=== PATIENT | male | born 1980 | race Caucasian/White ===

== ENCOUNTER 2025-01-30 07:37 | Outpatient (CLI) | payer OTHER, SELFPAY ==
--- NOTE | ~2025-01-30 | US_ITS ---
US abdomen complete EXAMINATION: US Abdomen Complete INDICATION: Abdomen pain. PROCEDURE: Realtime High Resolution abdomen ultrasound. COMPARISON: No prior studies for comparison FINDINGS: Gallbladder within normal limits. No gallstones, pericholecystic fluid, gallbladder wall thickening or biliary dilatation. Common bile duct measures 3 mm. Liver echotexture within normal limits without focal mass. Pancreas within normal limits. Pancreatic tail is obscured by bowel gas. Spleen is unremarkeable. Renal echotexture is within normal limits bilaterally without hydronephrosis, contour deforming mass or renal stone. Right kidney measures 11.7 cm. Left kidney measures 12.8 cm. Visualized aspects of the aorta and IVC are within normal limits. Portal vein is patent. No sonographic Álvarez's sign indicated by the technologist. IMPRESSION: 1: Normal abdominal ultrasound. Reviewed, dictated and finalized at location O.
--- NOTE | ~2025-01-30 | CT_ITS ---
EXAMINATION: CT diagnostic chest w con DATE: 01/30/2025 08:31 INDICATION: Right axillary rib and chest wall pain TECHNIQUE: Computed tomography (CT) of the chest was performed with intravenous contrast. The dose-length product was 250.66 mGy-cm. COMPARISON: None FINDINGS: Heart size normal. No significant pleural or pericardial effusion. No thoracic lymphadenopathy. No significant vascular abnormality. No central pulmonary embolism. Fatty infiltration of the liver. The spleen, pancreas, adrenal glands and kidneys are unremarkable. Partially visualized appendix is unremarkable. Nonobstructive bowel gas pattern. No focal airspace consolidation. No endobronchial lesions. No pneumothorax. Mild emphysema. No acute osseous abnormality. IMPRESSION: 1. No acute abnormality of the chest. Reviewed, dictated and finalized at location O.
--- OUTSIDE RECORDS SUMMARY | 2025-01-30 07:57 | XMS_ITS | Clinical Summary ---
Author Organization [facility] Address [address] [place] [address] Care Team Providers Care Sampler Ovens Name Role Phone Unavailable Primary Care Provider Unavailabl e Source Comments [facility],non-owned Affiliates and Associated Physician Practices is amultiple site organization consisting of ambulatory clinics and hospital sitesin [place], [place], [place] and [place]. This disclosure is being madepursuant to the Care Everywhere program and may not contain all information available regarding this patient. Last updated 18.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 Gender Identity Not on file Sexual Orientation Not on file Last Filed Vital Signs Vital Sign Reading Time Taken Comments Blood Pressure 141/60 11/02/2013 3:07 PM CDT Pulse 80 11/02/2013 3:07 PM CDT Temperature 36.7 C (98.1 F) 11/02/2013 2:28 PM CDT Respiratory Rate 14 11/02/2013 3:07 PM CDT Oxygen Saturation 100% 11/02/2013 3:07 PM CDT Inhaled Oxygen Concentration - - Weight 86.2 kg (190 lb) 11/02/2013 2:28 PM CDT Height 180.3 cm (5' 11) 11/02/2013 2:28 PM CDT Body Mass Index 26.5 11/02/2013 2:28 PM CDT Plan of Treatment Health Maintenance Due Date Last Done Comments COLOGUARD (AGES 45-75) - COL ON CA SCREENING 1978 COLON MONITORING 1978 COLONOSCOPY - COLON CA SCREENING 1978 CT COLONOGRAPHY - COLON CA SCREENING 1978 Colorectal Cancer Screening 1978 FIT - COLON CA SCREENING 1978 FLEX SIG - COLON CA SCREENING 1978 LIPID TESTING 1978 HIV SCREENING 1993 HEPATITIS C SCREENING 07/19/1996 DTAP/TDAP/TD VACCINES (1 - Tdap) 1997 HEPATITIS B VACCINE (1 of 3 - 19+ 3-dose series) 1997 DEPRESSION SCREENING 05/11/2024 COVID-19 VACCINE (1 - 2023-2 5 season) 2025 INFLUENZA VACCINE (#1) 2025 ZOSTER VACCINE (1 of 2) 2028 HIB VACCINE Aged Out No longer eligi ble based on patient's age to complete this topic HPV VACCINE Aged Out No longer eligi ble based on patient's age to complete this topic MENINGOCOCCAL (Group B) VACC INE SHARED DECISION-MAKING Aged Out No longer eligibl e based on patient's age to complete this topic MENINGOCOCCAL GROUPS A/C/Y/W VACCINE Aged Out No longer eligible b ased on patient's age to complete this topic PNEUMOCOCCAL VACCINE Aged Out No long er eligible based on patient's age to complete this topic
== END 2025-01-30 07:38 | disposition home or self-care (01) ==
PROVIDERS: PCP Emergency Medicine; Visit Provider Emergency Medicine
DX: R07.89 Other chest pain (principal); R10.10 Upper abdominal pain, unspecified
CPT/HCPCS: 71260; 76700; Q9967

== ENCOUNTER 2025-05-02 07:11 | Emergency (ER) | payer OTHER, SELFPAY ==
--- NOTE | ~2025-05-02 | US_ITS ---
EXAMINATION: US scrotum doppler DATE: 05/02/2025 09:37 INDICATION: Testicular pain TECHNIQUE: Testicular sonogram utilizing grayscale and Doppler COMPARISON: None. FINDINGS: The right testis measures 5.0 x 3.5 x 2.5 cm. The left testis measures 4.8 x 3.0 x 2.8 cm. Symmetric normal grayscale appearance to both testes. There is normal vascular flow to both testes. 7 mm anechoic right epididymal head cyst. The right epididymis is otherwise normal with normal vascular flow. The left epididymis is normal with normal vascular flow. There is no varicocele. Minimal bilateral hydroceles. IMPRESSION: 1. 7 mm right epididymal cyst and minimal bilateral hydroceles. Otherwise normal scrotal ultrasound. Reviewed, dictated and finalized at location A. LOGIST IMPRESSION: 1. 7 mm right epididymal cyst and minimal bilateral hydroceles. Otherwise norm al scrotal ultrasound.
--- NOTE | ~2025-05-02 | CT_ITS ---
CT abdomen pelvis w con Clinical History: LT flank pain, urinary frequency/urgency . Comparison: None Technique: Axial images lung bases to symphysis pubis IV contrast information not listed in PACS Coronal, sagittal reformats CT images acquired with automatic exposure control for dose reduction DLP: 358 mGy-cm Findings: Lung bases: Clear. Visualized heart and pericardium: Unremarkable. Liver: Enlarged. Steatosis. Gallbladder: Unremarkable. Spleen: Unremarkable. Pancreas: Unremarkable. Adrenal glands: Unremarkable. Kidneys: Right kidney- No hydronephrosis. Tiny stone. Left kidney- hydronephrosis. 2 mm stone. 3 mm stone distal ureter. Distal esophagus/stomach: Mild distal esophageal wall thickening/esophagitis. Small bowel loops: Normal caliber and wall thickness. Colon: Mild apparent wall thickening but under distended. Normal RLQ appendix. Nodes: No enlarged nodes. Peritoneum: No ascites. No free air. Urinary bladder: Unremarkable. Prostate: Unremarkable. Bones: No acute bony abnormality. Soft tissues: Small umbilical hernia with fat. Aorta: No aneurysm or dissection. IVC: Unremarkable. Main portal vein/SMV/splenic vein: Patent. IMPRESSION: 1. Left kidney hydronephrosis from 3 mm stone distal ureter. Tiny bilateral nephrolithiasis. 2. Additional findings as above. Reviewed, dictated and finalized at location R. ER MACHINE OPERATOR IMPRESSION: 1. Left kidney hydronephrosis from 3 mm stone distal ureter. Tiny bilateral ne phrolithiasis. 2. Additional findings as above.
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
--- OUTSIDE RECORDS SUMMARY | 2025-05-02 07:13 | XMS_ITS | Clinical Summary ---
Author Organization [facility] Address [address] [place] [address] Care Team Providers Care Director Of Hotel Operations Name Role Phone Unavailable Primary Care Provider Unavailabl e Source Comments [facility],non-owned Affiliates and Associated Physician Practices is amultiple site organization consisting of ambulatory clinics and hospital sitesin [place], [place], [place] and [place]. This disclosure is being madepursuant to the Care Everywhere program and may not contain all information available regarding this patient. 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
[2025-05-02 07:56] VITALS: BP 152/103; PULSE 62; RESP 22; TEMP 36.7; O2SAT 100
[2025-05-02 08:14] LABS: Hematocrit 48.6 % (42.0-52.0); Hemoglobin 16.7 g/dL (14.0-18.0); Immature Granulocyte Percent A 0.3 % (0-0.5); Lymphocytes Absolute Auto 1.74 K/mm3 (0.9-3.2); Mean Corpuscular HGB Conc 34.4 g/dl (32-36); Mean Corpuscular Hemoglobin 29.8 pg (26-34); Mean Corpuscular Volume 86.8 fl (80-100); Nucleated Red Blood Cells Absolute Auto 0.000 K/mm3 (0.0-0.012); Nucleated Red Blood Cells Perc 0.0 % (0.0-0.2); Platelet Count Result 291 k/mm3 (150-375); Red Blood Count 5.60 M/mm3 (4.6-6.20); White Blood Count 9.6 K/mm3 (4.5-10.0)
[2025-05-02 08:33] LABS: Alanine Aminotransferase 31 U/L (6-50); Albumin Level 4.4 g/dL (3.5-5.1); Alkaline Phosphatase 94 U/L (38-126); Anion Gap 7 mmol/L (4-12); Aspartate Amino Transferase 32 U/L (17-59); Bilirubin,Total 0.8 mg/dL (0.2-1.3); Blood Urea Nitrogen 15 mg/dL (9-20); Calcium 9.3 mg/dL (8.4-10.2); Carbon Dioxide 26 mmol/L (22-30); Chloride 107 mmol/L (98-107); Estimated CRCL calculation 90 ml/min; Estimated Glomerular Filt Rate > 60; Glucose 105 mg/dL (65-110); Potassium 4.1 mmol/L (3.4-5.0); Sodium 140 mmol/L (137-145); Total Protein 7.6 g/dL (6.3-8.2)
[2025-05-02 08:45] VITALS: BP 148/93; PULSE 62; RESP 18; O2SAT 98
[2025-05-02] MEDS: ONDANSETRON INJ 4 MG/2 ML VIAL IV PUSH (08:45)
[2025-05-02] MEDS: HYDROmorphone HCL INJ (*CRX) 1 MG/ML SYR IV PUSH (08:45)
[2025-05-02 08:52] LABS: Add Urine Microscopic? YES; Appearance Urine Clear (Clear); Glucose Urine UA Negative (Negative); Leukocyte Esterase Ur 1+ LEU/UL (Negative); Nitrate Urine Negative (Negative); Non Pathogenic Casts 0-2; Specific Grav Ur 1.028 (1.001-1.035)
--- OUTSIDE RECORDS SUMMARY | 2025-05-02 08:58 | XMS_ITS | Clinical Summary ---
Author Organization [facility] [employer] Address [address] [place] [address] Care Team Providers Care Speech Language Pathologist Prn Name Role Phone No, Pcp LOOM FIXER SUPERVISOR Primary Care Provider Unavailabl e Medications No [...] Medical Devices Not on file Care Teams Speech Language Pathologist Prn Relationship Specialty Start Date End Date No, Pcp, LOOM FIXER SUPERVISOR N/A Do not use PCP - General Family Medicine 05/15/20
--- OUTSIDE RECORDS SUMMARY | 2025-05-02 08:58 | XMS_ITS | Clinical Summary ---
Author Organization [facility] Address [address] [place] [address] Care Team Providers Care Senior Trainer Name Role Phone Unavailable Primary Care Provider Unavailabl e Source Comments [facility],non-owned Affiliates and Associated Physician Practices is amultiple site organization consisting of ambulatory clinics and hospital sitesin [place], [place], [place] and [place]. This disclosure is being madepursuant to the Care Everywhere program and may not contain all information available regarding this patient. 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
--- NOTE | 2025-05-02 09:40 | ED.GENADULT ---
HPI - General Adult General Chief complaint: Urogenital-Male Stated complaint: urinary frequency, L side flank pain Time Seen by Provider: 05/02/25 08:36 History of Present Illness HPI narrative: 44-year-old male presents to the emergency department for evaluation for acute onset of left-sided flank pain that started this morning. Patient has no prior history of ureteral calculi. Patient does have a prior history of a vasectomy. Patient reports the left flank pain does radiate down to his left testicle. Patient denies any specific falls or injuries. Patient was unsure if he was having any hematuria. Patient does report associated nausea and vomiting. Patient denies any other significant past medical history. Time of evaluation patient is uncomfortable appearing. Related Data Allergies Allergy/AdvReac Type Severity Reaction Status Date / Time No Known Allergies Allergy Verified 05/02/25 07:58 Review of Systems Review of Systems: All systems reviewed & are unremarkable except as noted in HPI and below [facility] Social History Social History (Updated 05/20/19 @ 20:48 by Mary Ramos PA-C) Smoking status: Current every day smoker Alcohol intake: current Gender identity (if verbalized by the patient): Male Exam Narrative: APPEARANCE: Uncomfortable appearing HEAD: normocephalic, atraumatic. EYES: PERRLA/EOMI, conjunctivae clear. NOSE: Normal no drainage EARS:TMS clear with good light reflex. THROAT: Pharynx clear, no exudate. NECK: Supple. No adenopathy, no masses. RESPIRATORY: Airway patent, respirations nonlabored. Clear to auscultation bilaterally, no rales, rhonchi, wheezing. CARDIOVASCULAR: Regular rate and rhythm without murmurs rubs or gallops. ABDOMINAL: Soft, nontender, nondistended, normal bowel sounds MUSCULOSKELETAL: Moves all extremities. Strength/ROM intact, No edema, No calf tenderness. NEURO: Alert. Cranial nerves II through XII intact. Good gait. Good coordination SKIN: Warm, dry. Normal Color Course Vital Signs Vital signs: Vital Signs Temperature 98.1 F 05/02/25 07:56 Pulse Rate 62 05/02/25 07:56 Respiratory Rate 22 H 05/02/25 07:56 Blood Pressure 152/103 H 05/02/25 07:56 Pulse Oximetry 100 05/02/25 07:56 Oxygen Delivery Room Air 05/02/25 07:56 Temperature 98.1 F 05/02/25 07:56 Pulse Rate 65 05/02/25 11:00 Respiratory Rate 16 05/02/25 11:00 Blood Pressure 145/96 H 05/02/25 11:00 Pulse Oximetry 99 05/02/25 11:00 Oxygen Delivery Room Air 05/02/25 07:56 [facility] Narrative Medical decision making narrative: 44-year-old male presents emergency department for evaluation for left flank pain. Patient is currently afebrile with no leukocytosis and a stable hemoglobin. Patient has normal kidney function. UA was negative for an infection. He did have leukocyte esterase positive of some red blood cells some white blood cells but negative for urine. Patient was initially treated with 1 mg of Dilaudid medication for nausea control but patient states this did not help significantly. CT scan does show a 3 mm ureteral calculi in the distal left ureter. Patient was then treated with additional medication for nausea control along with IV Toradol. Patient was updated the results of the workup and plan for treatment. All questions concerns were addressed. On re-evaluation patient states he does feel significantly improved patient is resting comfortably. Patient denies any nausea vomiting. Patient states abdominal pain has resolved. Patient was provided a urinal, filter, sample cup. Patient will be started on Zofran, [place] and Flomax. Patient will be provided outpatient follow-up with Urology. Patient was updated on the treatment plan for the kidney stone and on reasons to return to the emergency department. Differential Diagnosis Differential Diagnosis: Kidney stone, kidney failure, dehydration, infected stone, colitis, diverticulitis Lab Data [facility] Lab Attestation statement: I personally reviewed the patient's lab results. 05/02/25 08:09 05/02/25 08:09 Labs: Lab Results 05/02/25 Range/Units 08:09 WBC 9.6 (4.5-10.0) K/mm3 RBC 5.60 (4.6-6.20) M/mm3 Hgb 16.7 (14.0-18.0) g/dL Hct 48.6 (42.0-52.0) % MCV 86.8 (80-100) fl MCH 29.8 (26-34) pg MCHC 34.4 (32-36) g/dl RDW 13.4 (11.5-14.5) % Plt Count 291 (150-375) k/mm3 MPV 8.3 (7.4-10.4) fl Immature Gran % (Auto) 0.3 (0-0.5) % Neut % (Auto) 71.8 (45.5-73.1) % Lymph % (Auto) 18.1 L (18.3-44.2) % Mckinley % (Auto) 8.3 (2.6-8.5) % Eos % (Auto) 0.9 (0-4.4) % Baso % (Auto) 0.6 (0.2-1.2) % Lymph # (Auto) 1.74 (0.9-3.2) K/mm3 Mckinley # (Auto) 0.8 H (0.1-0.6) K/mm3 Eos # (Auto) 0.1 (0-0.3) K/mm3 Baso # (Auto) 0.1 (0.0-0.1) K/mm3 Abs Immat Gran (auto) 0.03 (0.00-0.031) K/mm3 Absolute Neuts (auto) 6.9 H (1.3-6.7) K/mm3 Absolute Nucleated RBC 0.000 (0.0-0.012) K/mm3 Nucleated RBC % 0.0 (0.0-0.2) % Sodium 140 (137-145) mmol/L Potassium 4.1 (3.4-5.0) mmol/L Chloride 107 (98-107) mmol/L Carbon Dioxide 26 (22-30) mmol/L Anion Gap 7 (4-12) mmol/L BUN 15 (9-20) mg/dL Creatinine 0.96 (0.7-1.3) mg/dL Estim Creat Clear Calc 90 ml/min Estimated GFR > 60 (59 - ) Glucose 105 (65-110) mg/dL Calcium 9.3 (8.4-10.2) mg/dL Total Bilirubin 0.8 (0.2-1.3) mg/dL AST 32 (17-59) U/L ALT 31 (6-50) U/L Alkaline Phosphatase 94 (38-126) U/L Total Protein 7.6 (6.3-8.2) g/dL Albumin 4.4 (3.5-5.1) g/dL Urine Color Dark yellow (Yellow) Urine Appearance Clear (Clear) Urine pH 6.0 (5.0-9.0) Ur Specific [place] 1.028 (1.001-1.035) Urine Protein Trace (Negative) mg/dL Urine Glucose (UA) Negative (Negative) mg/dL Urine Ketones Trace H (Negative) mg/dL Ur Blood (Man) 2+ H (Negative) Urine Nitrate Negative (Negative) Urine Bilirubin Negative (Negative) Urine Urobilinogen 1.0 (<2.0) mg/dL Leukocyte Esterase Rfl 1+ H (Negative) RONY/UL Urine RBC 6-10 H (0-2) /hpf Urine WBC 11-20 H (0-3) /hpf Ur Squamous Epith Cells None seen (Few) /hpf Urine Bacteria None seen /hpf Urine Casts 0-2 Urine Mucus Present /lpf Imaging Data Radiologist's impression: ITS Impressions Abdomen/Pelvis CT 05/02/25 09:04 IMPRESSION: 1. Left kidney hydronephrosis from 3 mm stone distal ureter. Tiny bilateral nephrolithiasis. 2. Additional findings as above. Scrotum Ultrasound 05/02/25 09:50 IMPRESSION: 1. 7 mm right epididymal cyst and minimal bilateral hydroceles. Otherwise normal scrotal ultrasound. Discharge Plan Discharge Clinical Impression: Calculus, ureteral Patient Disposition: Home Condition: Stable Instructions: Antibiotic Form, Kidney Stones (ED), How to Strain Your Urine (ED) Additional Instructions: Zofran as needed for nausea control. Flomax as directed to help you pass the stone. Ibuprofen for pain control. Killing[place] as needed for additional pain control. Strain your urine as instructed, bring the stone to your physician. Have close follow-up with Urology. If you have any worsening symptoms including uncontrolled nausea vomiting, uncontrolled pain, high fever then please call or return to the emergency department. Patient Language: Latvian Prescriptions: New hydrocodone-acetaminophen 5-325 mg tablet 1 tablet PO Q12H PRN (Reason: pain) Qty: 14 0RF tamsulosin 0.4 mg capsule 0.4 mg PO DAILY 14 Days Qty: 14 0RF ondansetron 4 mg tablet,disintegrating 4 mg PO Q8H PRN (Reason: nausea and vomiting) Qty: 14 0RF No Action cyclobenzaprine 10 mg tablet 10 mg PO TID PRN (Reason: muscle spasm) Qty: 10 0RF Follow-up/Referrals: Jagjit Larkin MD [Primary Care Provider, Family Practice] Joshua Monroy MD [Physician, Urology]
[2025-05-02] MEDS: METOCLOPRAMIDE HCL INJ 10 MG/2 ML VIAL IV PUSH (09:52)
[2025-05-02] MEDS: TAMSULOSIN HCL 0.4 MG CAPSULE PO (09:52)
[2025-05-02] MEDS: KETOROLAC 30 MG/ML VIAL (*BKC) IV PUSH (09:52)
[2025-05-02 11:00] VITALS: BP 145/96; PULSE 65; RESP 16; O2SAT 99
== END 2025-05-02 11:39 | disposition home or self-care (01) ==
PROVIDERS: Emergency Provider Emergency Medicine; PCP Emergency Medicine
DX: N13.2 Hydronephrosis with renal and ureteral calculous obstruction (principal); F17.200 Nicotine dependence, unspecified, uncomplicated; N50.3 Cyst of epididymis
CPT/HCPCS: 36415; 74177; 76870; 80053; 81001; 85025; 87086; 93976; 96374; 96375; 99284; A9270; J1171; J1200; J1885; J2405; J2765; Q9967